=== PATIENT | female | born 1955 | race Caucasian/White ===

== ENCOUNTER 2017-10-21 15:04 | Inpatient (IN) | payer OTHER ==
[~2017-10-21] VITALS: Ht 167.6 cm; Wt 80.9 kg
[~2017-10-21 15:04] MED LIST: AZEL1SPR2 EACH NARE; GLIM1TAB PO; LEVO.1 PO; LISI2.5T3 PO; LORA0.5T PO; MEDR4PAK PO; SYMB160A INH; TERB5 PO; VENTAER INH
[2017-10-21 17:21] VITALS: BP 146/80; PULSE 94; RESP 20; TEMP 98.1; O2SAT 95
[2017-10-21] MEDS ORDERED: LISI-515 PO (19:29)
[2017-10-21] MEDS ORDERED: PRED1SUS RIGHT EYE (19:29)
--- NOTE | 2017-10-21 19:31 | HHI.HP ---
HPI Service [facility] Hospitalists Primary Care Physician Non-Staff Admission Diagnosis Chief Complaint: sob Travel History International Travel<30 Days: No Contact w/Intl Traveler <30 Da: No Traveled to Known Affected Are: No History of Present Illness Pt is 62yo woman with hx parotid ca s/p resection, 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 Pt says she was unable to finish the last 2 chemo cycles due to side effects. Since finishing her chemo she has had some degree of chronic sob and is unclear about her hx of copd. She denies any recent wheezing or increase in cough. since this morning has had alot of band like pressure around her upper abdomen causing nausea, sob, dizziness especially with ambulation. She also grabs her left ant chest during my conversation and describes pressure. no jaw or arm radiation. No known hx of cad but has hx of LBBB. Pt had cta chest in [place] and sent here for eval for cardiac dz. Pt notes a "pinching sensation" under the left breast and even some palpitations with exertion. Review of Systems Other nausea sob/dizzy with exertion left chest pressure upper abdomen band like sensation. 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 with chemoradiation [place]. ...right facial droop due to nerve removal. htn dm 2 copd/asthma. migraines hypothyroidism lap yu. bilateral oophorectomy. cysts. thyroidectomy. benign nodules. recent right "iritis" LBBB Reported Medications Symbicort Inh (Budesonide/Formoterol Fumarate) 160-4.5 Mcg/Act Aero 2 Puff INH Q12HR Pred Forte Opth 1% (Prednisolone Acetate Opth 1%) 1% Susp 1 Drop RIGHT EYE HS Lisinopril 20 Mg Tab 20 Mg PO DAILY Synthroid (Levothyroxine Sodium) 100 Mcg Tab 100 Mcg PO DAILY Glimepiride 1 Mg Tab 2 Mg PO DAILY Take with breakfast or first main meal Prn sumatriptan Prn ativan 1mg qhs Allergies: Coded Allergies: Sulfa (Sulfonamide Antibiotics) (Unverified Allergy, Severe, Anaphylaxis, 10/21/17) penicillin G (Unverified Allergy, Severe, HIVES, 10/21/17) Family History NC Social History 2-3ppd tob x 38yrs. quit 10yrs ago occ etoh. Physical Exam Vital Signs right facial droop heart reg lung cta abd s/nt/nabs. nd ext no edema Vital Signs Date Time Temp Pulse Resp B/P (MAP) Pulse Ox O2 Delivery O2 Flow Rate FiO2 10/21/17 17:21 98.1 94 20 146/80 (102) 95 Caprinporsha VTE Risk Assessment Hipolito VTE Risk Assessment: Mod/High Risk (score >= 2) Caprini Risk Assessment Model Point Value = 1 Point Value = 2 Point Value = 3 Point Value = 5 Age 41-60 Minor surgery BMI > 25 kg/m2 Swollen legs Varicose veins or History of unexplained or recurrent spontaneous Oral contraceptives or hormone replacement Sepsis (< 1 month) Serious lung disease, including pneumonia (< 1 month) Abnormal pulmonary function Acute myocardial infarction Congestive heart failure (< 1 month) History of inflammatory bowel disease Medical patient at bed rest Age 61-74 Arthroscopic surgery Major open surgery (> 45 min) Laparoscopic surgery (> 45 min) Malignancy Confined to bed (> 72 hours) Immobilizing plaster cast Central venous access Age >= 75 History of VTE Family history of VTE Factor V Leiden Prothrombin [id number] Lupus anticoagulant Anticardiolipin antibodies Elevated serum homocysteine Heparin-induced thrombocytopenia Other congenital or acquired thrombophilia Stroke (< 1 month) Elective arthroplasty Hip, pelvis, or leg fracture Acute spinal cord injury (< 1 month) Prophylaxis Regimen Total Risk Factor Score Risk Level Prophylaxis Regimen 0-1 Low Early ambulation 2 Moderate Order ONE of the following: *Sequential Compression Device (SCD) *Heparin 5000 units SQ BID 3-4 Higher Order ONE of the following medications: *Heparin 5000 units SQ TID *Enoxaparin/Lovenox 40 mg SQ daily (WT < 150 kg, CrCl > 30 mL/min) *Enoxaparin/Lovenox 30 mg SQ daily (WT < 150 kg, CrCl > 10-29 mL/min) *Enoxaparin/Lovenox 30 mg SQ BID (WT < 150 kg, CrCl > 30 mL/min) AND/OR *Sequential Compression Device (SCD) 5 or more Highest Order ONE of the following medications: *Heparin 5000 units SQ TID (Preferred with Epidurals) *Enoxaparin/Lovenox 40 mg SQ daily (WT < 150 kg, CrCl > 30 mL/min) *Enoxaparin/Lovenox 30 mg SQ daily (WT < 150 kg, CrCl > 10-29 mL/min) *Enoxaparin/Lovenox 30 mg SQ BID (WT < 150 kg, CrCl > 30 mL/min) AND *Sequential Compression Device (SCD) Assessment and Plan Problem List: (1) SOB (shortness of breath) ICD Codes: R06.02 - Shortness of breath Status: Acute Plan: 1. sob. upper abdomen "band like sensation" and left chest pressure. c/o severe abernathy and dizziness. evaluate for cad in pt with risk factors. 2. dm 2 3. copd/asthma 4. hypothyroidism 5. hx right parotid ca s/p resection/chemoradiation 6. htn 7. recent dx of "right iritis now on prednisolone" echo/lexiscan to eval LVF and for ischemia telemetry to evaluate for arrhythmia. ambulate and check for hypoxia will obtain outpt pft from cp to assess degree of copd for now cont her symbicort. AM flp/hgba1c. dvt prophylaxis. (2) HTN (hypertension) ICD Codes: I10 - Essential (primary) hypertension Status: Chronic (3) DM type 2 (diabetes mellitus, type 2) ICD Codes: E11.9 - Type 2 diabetes mellitus without complications Status: Chronic (4) Hypothyroid ICD Codes: E03.9 - Hypothyroidism, unspecified Status: Chronic (5) Carcinoma of parotid gland ICD Codes: C07 - Malignant neoplasm of parotid gland Status: Resolved Darryl Kam MD Oct 21, 2017 19:31
[2017-10-21] MEDS ORDERED: SYMB160A INH (19:35)
[2017-10-21 19:39] VITALS: BP 156/85; PULSE 105; RESP 18; TEMP 98.5; O2SAT 94
[2017-10-21] MEDS ORDERED: LORazepam 1 MG TAB PO PRN (19:45)
[2017-10-21] MEDS ORDERED: DEXTROSE 50% IN WATER 50 ML VIAL(D50) IV PUSH PRN (19:45)
[2017-10-21] MEDS ORDERED: GLUCAGON 1 MG/ML VIAL OTHER PRN (19:45)
[2017-10-21] MEDS ORDERED: cloNIDine HCL 0.1 MG TAB PO PRN (20:00)
[2017-10-21] MEDS: INSULIN ASPART SUPPLEMENTAL SCALE SQ SCH (20:54)
[2017-10-21] MEDS: prednisoLONE ACETATE 1% OPHT SUSP 5 ML BTL RIGHT EYE SCH (20:54)
[2017-10-21] MEDS: BUDESONIDE-FORMOTEROL 160/4.5 MCG INHALER INH SCH (20:55)
[2017-10-21 22:55] VITALS: BP 121/69; PULSE 89; RESP 18; TEMP 97.9; O2SAT 95
[2017-10-21 23:00] VITALS: PULSE 85
[2017-10-22] VITALS (9 sets, daily range): BP systolic 105–132; BP diastolic 57–85; PULSE 72–104; RESP 16–24; TEMP 97.8–98.2; O2SAT 94–96
[2017-10-22] MEDS: LEVOTHYROXINE SODIUM 100 MCG TAB PO SCH (05:25)
[2017-10-22 06:41] LABS: AUTOMATED NEUTROPHIL # 3.9 TH/MM3 (1.8-7.7); BASOPHIL % 0.4 % (0.0-2.0); EOSINOPHIL # 0.2 TH/MM3 (0-0.4); EOSINOPHIL % 2.7 % (0.0-4.0); HEMATOCRIT 38.9 % (35.0-46.0); HEMOGLOBIN 13.2 GM/DL (11.6-15.3); LYMPH % 18.7 % (9.0-44.0); LYMPHOCYTE # 1.1 TH/MM3 (1.0-4.8); MEAN CELL VOLUME 87.3 FL (80.0-100.0); MEAN CORPUSCULAR HEMOGLOBIN 29.7 PG (27.0-34.0); MEAN PLATELET VOLUME 8.4 FL (7.0-11.0); MONO % 8.8 % (0.0-8.0); MONOCYTE # 0.5 TH/MM3 (0-0.9); NEUT % 69.4 % (16.0-70.0); PLATELET COUNT 196 TH/MM3 (150-450); RED BLOOD COUNT 4.46 MIL/MM3 (4.00-5.30); RED CELL DISTRIBUTION WIDTH 13.1 % (11.6-17.2); WHITE BLOOD COUNT 5.6 TH/MM3 (4.0-11.0)
[2017-10-22 07:03] LABS: BICARBONATE 24.9 MEQ/L (21.0-32.0); BLOOD UREA NITROGEN 19 MG/DL (7-18); CALCIUM 8.4 MG/DL (8.5-10.1); CHLORIDE 106 MEQ/L (98-107); CHOLESTEROL 177 MG/DL (120-200); CREATININE 0.92 MG/DL (0.50-1.00); GLOMERULAR FILTRATION RATE 62 ML/MIN (>89); GLUCOSE,RANDOM 165 MG/DL (74-106); SODIUM (NA) 141 MEQ/L (136-145); TRIGLYCERIDES 93 MG/DL (42-150)
[2017-10-22 07:08] LABS: CHOLESTEROL/ HDL RATIO 3.39 RATIO; HDL CHOLESTEROL 52.2 MG/DL (40.0-60.0); LDL CHOLESTEROL 106 MG/DL (0-99); TROPONIN I LESS THAN 0.02 NG/ML (0.02-0.05)
[2017-10-22] MEDS: INSULIN ASPART SUPPLEMENTAL SCALE SQ SCH ×4 (08:47→21:00)
--- NOTE | 2017-10-22 09:18 | HHI.PR ---
Subjective Remarks Patient resting in bed denies chest pain, SOB or dizziness at this time while laying down Patient concerned that symptoms will return when she ambulates Objective Vitals Vital Signs Date Time Temp Pulse Resp B/P (MAP) Pulse Ox O2 Delivery O2 Flow Rate FiO2 10/22/17 07:33 97.8 85 16 132/74 (93) 95 10/22/17 07:10 74 10/22/17 04:19 97.8 83 18 131/67 (88) 94 10/21/17 23:00 85 10/21/17 22:55 97.9 89 18 121/69 (86) 95 10/21/17 19:39 98.5 105 18 156/85 (108) 94 10/21/17 17:21 98.1 94 20 146/80 (102) 95 Result Diagram: 10/22/17 0602 10/22/17 0602 Other Results Laboratory Tests Test 10/22/17 06:02 White Blood Count 5.6 TH/MM3 Red Blood Count 4.46 MIL/MM3 Hemoglobin 13.2 GM/DL Hematocrit 38.9 % Mean Corpuscular Volume 87.3 FL Mean Corpuscular Hemoglobin 29.7 PG Mean Corpuscular Hemoglobin Concent 34.0 % Red Cell Distribution Width 13.1 % Platelet Count 196 TH/MM3 Mean Platelet Volume 8.4 FL Neutrophils (%) (Auto) 69.4 % Lymphocytes (%) (Auto) 18.7 % Monocytes (%) (Auto) 8.8 % Eosinophils (%) (Auto) 2.7 % Basophils (%) (Auto) 0.4 % Neutrophils # (Auto) 3.9 TH/MM3 Lymphocytes # (Auto) 1.1 TH/MM3 Monocytes # (Auto) 0.5 TH/MM3 Eosinophils # (Auto) 0.2 TH/MM3 Basophils # (Auto) 0.0 TH/MM3 CBC Comment DIFF FINAL Differential Comment Blood Urea Nitrogen 19 MG/DL Creatinine 0.92 MG/DL Random Glucose 165 MG/DL Calcium Level 8.4 MG/DL Sodium Level 141 MEQ/L Potassium Level 3.9 MEQ/L Chloride Level 106 MEQ/L Carbon Dioxide Level 24.9 MEQ/L Anion Gap 10 MEQ/L Estimat Glomerular Filtration Rate 62 ML/MIN Total Creatine Kinase 38 U/L Troponin I LESS THAN 0.02 NG/ML Triglycerides Level 93 MG/DL Cholesterol Level 177 MG/DL LDL Cholesterol 106 MG/DL HDL Cholesterol 52.2 MG/DL Cholesterol/HDL Ratio 3.39 RATIO Objective Remarks GENERAL: This is a well-nourished, well-developed patient, in no apparent distress. CARDIOVASCULAR: Regular rate and rhythm RESPIRATORY: Clear to auscultation. Breath sounds equal bilaterally. GASTROINTESTINAL: Abdomen soft, non-tender, nondistended. Normal active bowel sounds MUSCULOSKELETAL: Extremities without clubbing, cyanosis, or edema. NEURO: Alert & Oriented x4 to person, place, time, situation. Moves all ext x4 A/P Problem List: (1) SOB (shortness of breath) ICD Codes: R06.02 - Shortness of breath Status: Acute Plan: 1. sob. upper abdomen "band like sensation" and left chest pressure. c/o severe abernathy and dizziness. evaluate for cad in pt with risk factors. 2. dm 2 3. copd/asthma 4. hypothyroidism 5. hx right parotid ca s/p resection/chemoradiation 6. htn 7. recent dx of "right iritis now on prednisolone" Patient NPO for lexiscan echo (pending) Lexiscan No evidence of stress-induced ischemia. Intact wall motion with greater than 70% EF. telemetry to evaluate for arrhythmia. ambulate and check for hypoxia CXR (10/21/17) conclusion: the lungs are clear CT Pulmonary angiogram 10/21/17 conclusion: Mild COPD changes. No Pulmonary embolus identified. Stable compared to previous exam dated 06/17/17 US left leg impression: Negative deep venous ultrasound examination of the left lower leg Outpt PFT from [facility] (09/26/17) revealed FEV1 58% cont her symbicort. Awaiting resp walk test LDL 106 hgba1c. (pending) dvt prophylaxis. (2) HTN (hypertension) ICD Codes: I10 - Essential (primary) hypertension Status: Chronic (3) DM type 2 (diabetes mellitus, type 2) ICD Codes: E11.9 - Type 2 diabetes mellitus without complications Status: Chronic (4) Hypothyroid ICD Codes: E03.9 - Hypothyroidism, unspecified Status: Chronic (5) Carcinoma of parotid gland ICD Codes: C07 - Malignant neoplasm of parotid gland Status: Resolved Assessment and Plan Patient examined. Assessment and plan formulated with Claribel León PA-C. I agree with the above. gissell negative. echo pending. passed walk test. ct a/p concerning for ?mass cecum..GI consult Claribel León October 22, 2017 09:18 Darryl Kam MD October 22, 2017 18:38
[2017-10-22] MEDS ORDERED: REGADENOSON INJ 0.4 MG/5 ML SYR ONE (09:44)
[2017-10-22] MEDS: LISINOPRIL 20 MG TAB PO SCH (11:29)
[2017-10-22] MEDS: BUDESONIDE-FORMOTEROL 160/4.5 MCG INHALER INH SCH ×2 (11:29→22:09)
[2017-10-22] MEDS: ONDANSETRON HCL 4 MG/2 ML VIAL IV PUSH PRN (11:33)
--- NOTE | 2017-10-22 11:34 | RADRPT ---
EXAM DATE/TIME: 10/22/2017 09:29 [facility] COMPARISON: No previous studies available for comparison. INDICATIONS : Left sided chest pain. Angina. Left bundle branch block. DOSE: 25.9 mCi Tc99m Myoview at stress. 8.3 mCi Tc99m Myoview at rest. 0.4 mg Lexiscan STRESS SYMPTOMS: Stomach cramps. EJECTION FRACTION: > 70% MEDICAL HISTORY : Chronic obstructive pulmonary disease. Parotiod cancer. SURGICAL HISTORY : Cholecystectomy. Thyroidectomy. ENCOUNTER: Initial ACUITY: 1 day PAIN SCALE: 2/10 LOCATION: Left chest TECHNIQUE: The patient underwent pharmacologic stress with infusion of prescribed dose. Continuous ECG tracing was monitored during stress. Gated SPECT imaging was performed after stress and conventional SPECT i maging was performed at rest. The examination was performed on a SPECT/CT scanner, both attenuation and non-corrected datasets were reviewed. FINDINGS: DISTRIBUTION: The maximum perfused segment at stress is in the lateral wall. PERFUSION STUDY: The pattern of perfusion at stress is within normal limits with regional variations of perfusion with in 30%. The summed stress score is 3. GATED STUDY: There is intact wall motion and thickening without hypokinetic or dyskinetic segments. CONCLUSION: 1. No evidence of stress-induced ischemia. 2. Intact wall motion with greater than 70% ejection fraction. RISK CATEGORY: Low (<1% Annual Mortality Rate) Polo Aparicio MD on October 22, 2017 at 11:31 Board Certified Radiologist. This report was verified electronically.
[2017-10-22] MEDS ORDERED: DIATRIZOATE MEGLUM/DIATRIZOATE SOD 9 ML CUP PO ONE (15:00)
--- NOTE | 2017-10-22 17:45 | RADRPT ---
EXAM DATE/TIME: 10/22/2017 17:24 [facility] COMPARISON: No previous studies available for comparison. INDICATIONS : Abdomen pain,upper quadrant ORAL CONTRAST: Partial prescribed oral contrast ingested. RADIATION DOSE: 10.81 CTDIvol (mGy) MEDICAL HISTORY : Cardiovascular disease. Hypertension. Diabetes SURGICAL HISTORY : Cholecystectomy. ENCOUNTER: Initial ACUITY: 1 day PAIN SCALE: 6/10 LOCATION: Bilateral Abdomen TECHNIQUE: Volumetric scanning of the abdomen and pelvis was performed. Using automated exposure control and ad justment of the mA and/or kV according to patient size, radiation dose was kept as low as reasonably achievable to obtain optimal diagnostic quality images. DICOM format image data is available electro nically for review and comparison. FINDINGS: LOWER LUNGS: The visualized lower lungs are clear. LIVER: Homogeneous density without lesion for noncontrast technique. There is no dilation of the biliary tr ee. Cholecystectomy. SPLEEN: Normal size without lesion. PANCREAS: Within normal limits. KIDNEYS: Normal in size and shape. There is no mass, stone, or hydronephrosis. 1.3 cm cyst posterior upper r ight kidney. ADRENAL GLANDS: Within normal limits. VASCULAR: There is no aortic aneurysm. BOWEL/MESENTERY: No dilated loops of small or large bowel. Oral contrast passes through to the right colon. In the c ecum, there is no contrast and there is an oval opacity measuring 4.4 x 2.3 cm within the lumen. Thi s is of uncertain significance. There are few diverticula in the sigmoid colon without radiographic evidence of diverticulitis. ABDOMINAL WALL: Within normal limits. RETROPERITONEUM: There is no lymphadenopathy. BLADDER: No wall thickening or mass. REPRODUCTIVE: Within normal limits. INGUINAL: Small left-sided fat containing inguinal hernia. MUSCULOSKELETAL: Within normal limits for patient age. CONCLUSION: 1. Oral contrast passes through to the right colon, but there is an area without contrast in the guzman on of the cecum suggesting possible intraluminal mass. May consider direct visualization with colono scopy. 2. Small fat containing left inguinal hernia. Ploo Aparicio MD on October 22, 2017 at 17:39 Board Certified Radiologist. This report was verified electronically.
[2017-10-22 18:29] LABS: HEMOGLOBIN A1C 7.6 % (4.3-6.0)
[2017-10-22] MEDS: prednisoLONE ACETATE 1% OPHT SUSP 5 ML BTL RIGHT EYE SCH (22:09)
[2017-10-23] VITALS (7 sets, daily range): BP systolic 117–146; BP diastolic 60–77; PULSE 70–122; RESP 16–18; TEMP 97.5–98.5; O2SAT 94–96
[2017-10-23] MEDS: LEVOTHYROXINE SODIUM 100 MCG TAB PO SCH (05:17)
[2017-10-23] MEDS: LISINOPRIL 20 MG TAB PO SCH (08:44)
[2017-10-23] MEDS: BUDESONIDE-FORMOTEROL 160/4.5 MCG INHALER INH SCH ×2 (08:44→21:34)
[2017-10-23] MEDS: INSULIN ASPART SUPPLEMENTAL SCALE SQ SCH ×4 (08:47→21:37)
--- NOTE | 2017-10-23 10:00 | HHI.PR ---
Subjective Remarks Pt reports that she is still having upper abdominal discomfort which is worse after she eats She reports that she has had this pain for several months She has a fullness sensation on the right side that makes her feel like she can' t take a deep breath She has been ambulating without difficulty No further chest pain Her O2 sats were stable with ambulation. Objective Vitals Vital Signs Date Time Temp Pulse Resp B/P (MAP) Pulse Ox O2 Delivery O2 Flow Rate FiO2 10/23/17 07:25 98.0 81 18 146/70 (95) 94 10/23/17 07:10 70 10/23/17 05:05 21 10/23/17 00:39 98.5 83 18 118/60 (79) 95 10/22/17 23:00 72 10/22/17 20:52 97.8 94 18 105/57 (73) 95 10/22/17 16:18 96 10/22/17 15:57 98.2 104 20 129/85 (100) 96 10/22/17 12:30 75 10/22/17 11:07 98.0 97 24 131/74 (93) 96 Result Diagram: 10/22/17 0602 10/22/17 0602 Other Results Laboratory Tests Test 10/22/17 06:02 White Blood Count 5.6 TH/MM3 Red Blood Count 4.46 MIL/MM3 Hemoglobin 13.2 GM/DL Hematocrit 38.9 % Mean Corpuscular Volume 87.3 FL Mean Corpuscular Hemoglobin 29.7 PG Mean Corpuscular Hemoglobin Concent 34.0 % Red Cell Distribution Width 13.1 % Platelet Count 196 TH/MM3 Mean Platelet Volume 8.4 FL Neutrophils (%) (Auto) 69.4 % Lymphocytes (%) (Auto) 18.7 % Monocytes (%) (Auto) 8.8 % Eosinophils (%) (Auto) 2.7 % Basophils (%) (Auto) 0.4 % Neutrophils # (Auto) 3.9 TH/MM3 Lymphocytes # (Auto) 1.1 TH/MM3 Monocytes # (Auto) 0.5 TH/MM3 Eosinophils # (Auto) 0.2 TH/MM3 Basophils # (Auto) 0.0 TH/MM3 CBC Comment DIFF FINAL Differential Comment Blood Urea Nitrogen 19 MG/DL Creatinine 0.92 MG/DL Random Glucose 165 MG/DL Calcium Level 8.4 MG/DL Sodium Level 141 MEQ/L Potassium Level 3.9 MEQ/L Chloride Level 106 MEQ/L Carbon Dioxide Level 24.9 MEQ/L Anion Gap 10 MEQ/L Estimat Glomerular Filtration Rate 62 ML/MIN Hemoglobin A1c 7.6 % Total Creatine Kinase 38 U/L Troponin I LESS THAN 0.02 NG/ML Triglycerides Level 93 MG/DL Cholesterol Level 177 MG/DL LDL Cholesterol 106 MG/DL HDL Cholesterol 52.2 MG/DL Cholesterol/HDL Ratio 3.39 RATIO Imaging Last Impressions Myocardial Perfusion Scan Nuc Med 10/22/17 0600 Signed Impressions: Service Date/Time: Sunday, October 22, 2017 09:29 - CONCLUSION: 1. No evidence of stress-induced ischemia. 2. Intact wall motion with greater than 70%% ejection fraction. RISK CATEGORY: Low (<1%% Annual Mortality Rate) Polo Aparicio MD Abdomen/Pelvis CT 10/22/17 0000 Signed Impressions: Service Date/Time: Sunday, October 22, 2017 17:24 - CONCLUSION: 1. Oral contrast passes through to the right colon, but there is an area without contrast in the region of the cecum suggesting possible intraluminal mass. May consider direct visualization with colonoscopy. 2. Small fat containing left inguinal hernia. Polo Aparicio MD Objective Remarks GENERAL: NAD, AAOx3 CARDIOVASCULAR: Regular RESPIRATORY: CTA bilaterally. GASTROINTESTINAL: Abdomen soft, non-tender, nondistended. Normal active bowel sounds MUSCULOSKELETAL: Extremities without clubbing, cyanosis, or edema. A/P Problem List: (1) SOB (shortness of breath) ICD Codes: R06.02 - Shortness of breath Status: Acute Plan: SOB with upper abdomen "band like sensation" and left chest pressure. Severe ABREU and dizziness Possible cecal mass - Pt is a 62yo woman with hx parotid ca s/p resection/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 She reportedly was unable to finish the last 2 chemo cycles due to side effects. Since finishing her chemo she has had some degree of chronic SOB and is unclear about her hx of copd. - On the morning of admission she had a lot of band like pressure around her upper abdomen causing nausea, SOB, dizziness especially with ambulation - CXR (10/21/17) conclusion: the lungs are clear - CT Pulmonary angiogram (10/21/17) --> Mild COPD changes. No Pulmonary embolus identified. Stable compared to previous exam dated 06/17/17 - Lexiscan (10/22)--> No evidence of stress-induced ischemia. Intact wall motion with greater than 70% EF. - Telemetry which noted tachycardia into the 130's periodically, she repeorts that this is with ambulation. - No noted hypoxia with ambulation - US left leg impression: Negative deep venous ultrasound examination of the left lower leg - 2D echo is pending - CT Abd/pelvis W/O IV contrast (10/22/17) --> Oral contrast passes through to the right colon, but there is an area without contrast in the region of the cecum suggesting possible intraluminal mass. May consider direct visualization with colonoscopy. Small fat containing left inguinal hernia. - GI has been consulted. Pt reports that her last colonoscopy was over 10 years ago and she had polyps and diverticulosis at that time. Diabetes mellitus, type 2 - Hgb A1C 7.6% - NovoLog SSI COPD/asthma - Outpt PFT from [facility] (09/26/17) revealed FEV1 58% - Cont her Symbicort. Hypothyroidism - Cont. home meds - Monitor HTN - Cont. 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 (2) HTN (hypertension) ICD Codes: I10 - Essential (primary) hypertension Status: Chronic (3) DM type 2 (diabetes mellitus, type 2) ICD Codes: E11.9 - Type 2 diabetes mellitus without complications Status: Chronic (4) Hypothyroid ICD Codes: E03.9 - Hypothyroidism, unspecified Status: Chronic (5) Carcinoma of parotid gland ICD Codes: C07 - Malignant neoplasm of parotid gland Status: Resolved Assessment and Plan Patient examined. Assessment and plan formulated with Claribel León PA-C. I agree with the above. gissell negative. echo pending. passed walk test. ct a/p concerning for ?mass cecum..GI consulted and egd/colon planned. Olga Elam October 23, 2017 10:00 Darryl Kam MD October 23, 2017 13:18
--- NOTE | 2017-10-23 10:55 | PD.CONS ---
HPI History of Present Illness This is a 62 year old female with hx parotic ca s/p resection, chemo radiation who presented to ER with SOB and upper abd pressure. Onset 3 days ago. SHe notes lingering SOB since completing chemo 15 months ago. GI consulted for abnormal imaging. CT showede possible intraluminal mass right colon. She admits nausea for the last 3 months worse after eating. She has been more constipated than usual in the last few months. No vomiting. No diarrhea, black tarry stool , weight loss. Admits occasional red blood on wipe, scant, when constipated after having BM. Last colonoscopy > 10y ago in [place], polyps and diverticulosis found. She had EGD at that time as well which was unremarkable. (Suma Foster) PFSH Past Medical History parotid ca s/p chemo, radiation, resection iatrogenic hypothyroid diabetes HTN Past Surgical History thyroid resection parotid resection (Suma Foster) Coded Allergies: Sulfa (Sulfonamide Antibiotics) (Unverified Allergy, Severe, Anaphylaxis, 10/21/17) penicillin G (Unverified Allergy, Severe, HIVES, 10/21/17) Family History thyroid ca - mother brca - mother denies family hx colon ca Social History rare etoh quit smoking 10y ago no illicit drug use (Suma Foster) Review of Systems Constitutional: DENIES: Fever, Weight loss Endocrine: DENIES: Polydipsia Eyes: DENIES: Blurred vision Ears, nose, mouth, throat: DENIES: Hearing loss Respiratory: COMPLAINS OF: Shortness of breath, DENIES: Cough Cardiovascular: DENIES: Chest pain Gastrointestinal: COMPLAINS OF: Abdominal pain, Constipation, Nausea, DENIES: Black stools, Bloody stools, Vomiting Genitourinary: DENIES: Nocturia Musculoskeletal: DENIES: Joint Swelling Integumentary: DENIES: Jaundice Hematologic/lymphatic: DENIES: Bruising Immunologic/allergic: DENIES: Eczema Neurologic: DENIES: Abnormal gait Psychiatric: DENIES: Confusion (Suma Foster) GI Exam Vitals I&O Vital Signs Date Time Temp Pulse Resp B/P (MAP) Pulse Ox O2 Delivery O2 Flow Rate FiO2 10/23/17 07:25 98.0 81 18 146/70 (95) 94 10/23/17 07:10 70 10/23/17 05:05 21 10/23/17 00:39 98.5 83 18 118/60 (79) 95 10/22/17 23:00 72 10/22/17 20:52 97.8 94 18 105/57 (73) 95 10/22/17 16:18 96 10/22/17 15:57 98.2 104 20 129/85 (100) 96 10/22/17 12:30 75 10/22/17 11:07 98.0 97 24 131/74 (93) 96 I/O 10/22/17 10/22/17 10/22/17 10/23/17 10/23/17 10/23/17 06:59 14:59 22:59 06:59 14:59 22:59 # Voids 3 # Bowel Movements 0 Imaging Last Impressions Myocardial Perfusion Scan Nuc Med 10/22/17 0600 Signed Impressions: Service Date/Time: Sunday, October 22, 2017 09:29 - CONCLUSION: 1. No evidence of stress-induced ischemia. 2. Intact wall motion with greater than 70%% ejection fraction. RISK CATEGORY: Low (<1%% Annual Mortality Rate) Polo Aparicio MD Abdomen/Pelvis CT 10/22/17 0000 Signed Impressions: Service Date/Time: Sunday, October 22, 2017 17:24 - CONCLUSION: 1. Oral contrast passes through to the right colon, but there is an area without contrast in the region of the cecum suggesting possible intraluminal mass. May consider direct visualization with colonoscopy. 2. Small fat containing left inguinal hernia. Polo Aparicio MD Laboratory Laboratory Tests Test 10/22/17 06:02 White Blood Count 5.6 TH/MM3 Red Blood Count 4.46 MIL/MM3 Hemoglobin 13.2 GM/DL Hematocrit 38.9 % Mean Corpuscular Volume 87.3 FL Mean Corpuscular Hemoglobin 29.7 PG Mean Corpuscular Hemoglobin Concent 34.0 % Red Cell Distribution Width 13.1 % Platelet Count 196 TH/MM3 Mean Platelet Volume 8.4 FL Neutrophils (%) (Auto) 69.4 % Lymphocytes (%) (Auto) 18.7 % Monocytes (%) (Auto) 8.8 % Eosinophils (%) (Auto) 2.7 % Basophils (%) (Auto) 0.4 % Neutrophils # (Auto) 3.9 TH/MM3 Lymphocytes # (Auto) 1.1 TH/MM3 Monocytes # (Auto) 0.5 TH/MM3 Eosinophils # (Auto) 0.2 TH/MM3 Basophils # (Auto) 0.0 TH/MM3 CBC Comment DIFF FINAL Differential Comment Blood Urea Nitrogen 19 MG/DL Creatinine 0.92 MG/DL Random Glucose 165 MG/DL Calcium Level 8.4 MG/DL Sodium Level 141 MEQ/L Potassium Level 3.9 MEQ/L Chloride Level 106 MEQ/L Carbon Dioxide Level 24.9 MEQ/L Anion Gap 10 MEQ/L Estimat Glomerular Filtration Rate 62 ML/MIN Hemoglobin A1c 7.6 % Total Creatine Kinase 38 U/L Troponin I LESS THAN 0.02 NG/ML Triglycerides Level 93 MG/DL Cholesterol Level 177 MG/DL LDL Cholesterol 106 MG/DL HDL Cholesterol 52.2 MG/DL Cholesterol/HDL Ratio 3.39 RATIO Physical Examination HEENT: PERRL; normocephalic; atraumatic; no jaundice. ptosis right side face CHEST: CTA CARDIAC: RRR ABDOMEN: Soft, nondistended, RUQ TTP; no hepatosplenomegaly; bowel sounds are present in all four quadrants. EXTREMITIES: No clubbing, cyanosis, or edema. SKIN: Normal; no rash; no jaundice. SHAKE SAWYER: No focal deficits; alert and oriented times three. (Suma Foster) Assessment and Plan Plan ASSESSMENT - RLQ pain, nausea, change in bowel habits, abnormal imaging - unclear etiology. 2-3 month hx RLQ pain, increased constipation, nausea after eating. CT showed poss intraluminal mass area of cecum. her last colonoscopy was over 10 y ago with finding diverticulosis, polyps. Had EGD at that time as well, unremarkable per pt. cardiac cause of pain ruled out. hx parotid ca. PLAN - EGD and colonoscopy tomorrow - obtain consent - Golytely - clears today - NPO after midnight - further recs to follow pt seen by myself and Dr Crockett and this note is on his behalf (Suma Foster) Plan Patient was seen and examined, agree with above note, we will plan an endoscopy and colonoscopy tomorrow, I explained to the patient the procedure and she is agreeable to have it done (Roxana Crockett MD) Suma Foster October 23, 2017 10:55 Roxana Crockett MD October 23, 2017 20:54
[2017-10-23] MEDS ORDERED: LACTATED RINGER'S 1000 ML IV PRN (15:15)
[2017-10-23] MEDS ORDERED: METOPROLOL TARTRATE 25 MG TAB PO PRN (15:15)
[2017-10-23] MEDS ORDERED: POVIDONE IODINE 5% (ANTISEPSIS KIT) 4 APPLICATIONS EACH NARE PRN (15:15)
[2017-10-23] MEDS ORDERED: SODIUM CHLORID 0.9% 500 ML IV PRN (15:15)
[2017-10-23] MEDS ORDERED: CHLORHEXIDINE GLUCONATE 2 % 1 PACK (2 CLOTHS) TOPICAL PRN (15:15)
[2017-10-23] MEDS ORDERED: PEG (High)/E-LYTE SOLN 4000 ML BTL PO ONE (16:00)
--- NOTE | 2017-10-23 16:52 | ECHRPT ---
Indication: SHORTNESS OF BREATH CONCLUSIONS Normal left ventricular size. EF @ 60% Mild concentric left ventricular hypertrophy. The left ventricular systolic function is grossly normal on limited imaging. There is trace tricuspid valve regurgitation. A prominent epicardial fat pad is present. BP: 132 / 74 HR: 85 Rhythm: Sinus MEASUREMENTS (Male / Female) Normal Values Technical Quality:Fair 2D ECHO LV Diastolic Diameter PLAX 4.2 cm 4.2 - 5.9 / 3.9 - 5.3 cm LV Systolic Diameter PLAX 2.6 cm IVS Diastolic Thickness 1.1 cm 0.6 - 1.0 / 0.6 - 0.9 cm LVPW Diastolic Thickness 1.1 cm 0.6 - 1.0 / 0.6 - 0.9 cm LV Relative Wall Thickness 0.5 RV Internal Dim ED PLAX 2.2 cm LVOT Diameter 1.8 cm Aortic Root Diameter 2.7 cm LA Systolic Diameter LX 2.2 cm 3.0 - 4.0 / 2.7 - 3.8 cm M-MODE AV Cusp Separation MM 1.9 cm DOPPLER AV Peak Velocity 139.0 cm/s AV Peak Gradient 7.7 mmHg AV Mean Gradient 4.0 mmHg AV Velocity Time Integral 21.0 cm LVOT Peak Velocity 134.0 cm/s LVOT Peak Gradient 7.2 mmHg LVOT Velocity Time Integral 21.0 cm AV Area Cont Eq vti 2.5 cm AV Area Cont Eq pk 2.5 cm Mitral E Point Velocity 51.3 cm/s Mitral A Point Velocity 88.4 cm/s Mitral E to A Ratio 0.6 LV E' Lateral Velocity 10.5 cm/s Mitral E to LV E' Lateral Ratio 4.9 LV E' Septal Velocity 5.4 cm/s Mitral E to LV E' Septal Ratio 9.6 PV Peak Velocity 117.0 cm/s PV Peak Gradient 5.5 mmHg FINDINGS LEFT VENTRICLE Normal left ventricular size. Mild concentric left ventricular hypertrophy. The left ventricular systolic function is grossly normal on limited imaging. RIGHT VENTRICLE Normal right ventricular size and systolic function. LEFT ATRIUM The left atrial size is normal. RIGHT ATRIUM The right atrial size is normal. ATRIAL SEPTUM The interatrial septum not well visualized. AORTA The aortic root and proximal ascending aorta are not well visualized. MITRAL VALVE Structurally normal mitral valve. No mitral valve stenosis or regurgitation. AORTIC VALVE The aortic valve is not well visualized. TRICUSPID VALVE There is trace tricuspid valve regurgitation. PULMONARY VALVE The pulmonary valve is not well visualized. VESSELS The inferior vena cava is normal in size. PERICARDIUM A prominent epicardial fat pad is present. Duncan Pacheco MD, FACC, [facility] [place] (Electronically Signed) Final Date:23 Oct 2017 16:52
[2017-10-23] MEDS: prednisoLONE ACETATE 1% OPHT SUSP 5 ML BTL RIGHT EYE SCH (21:00)
[2017-10-23] MEDS: ONDANSETRON HCL 4 MG/2 ML VIAL IV PUSH PRN (22:39)
[2017-10-24 00:42] VITALS: PULSE 90
[2017-10-24 01:15] VITALS: BP 143/65; PULSE 85; RESP 16; TEMP 98; O2SAT 98
[2017-10-24] MEDS: LEVOTHYROXINE SODIUM 100 MCG TAB PO SCH (05:29)
[2017-10-24 05:30] VITALS: BP 144/67; PULSE 86; RESP 16; TEMP 97.6; O2SAT 96
[2017-10-24 07:49] VITALS: PULSE 101
[2017-10-24] MEDS: INSULIN ASPART SUPPLEMENTAL SCALE SQ SCH ×4 (08:00→21:58)
--- NOTE | 2017-10-24 09:58 | PD.PROCEDR ---
GI Procedure PROCEDURE PERFORMED Upper endoscopy with biopsy, colonoscopy with polypectomy INDICATION FOR PROCEDURE Abdominal pain, abnormal CT scan of the cecum PROCEDURE: The procedure, risks and benefits were discussed with Ms. Salazar and informed consent was obtained. Anesthesia sedated her with Diprivan. She was placed in the left lateral decubitus position. EGD: The Pentax videoscope was introduced through the oropharynx and advanced to the second portion of the duodenum under direct visualization. Retroflexion was performed in the stomach. Biopsy from the EG junction Colonoscopy: The Pentax videoscope was introduced through the rectum and advanced to cecum, terminal ileum was examined. Retroflexion was performed in the rectum. Colonic prep was fair ESTIMATED BLOOD LOSS: None SPECIMENS REMOVED: None COMPLICATIONS: None IMPRESSION: Irregular Z line, possible short Evans, biopsy was done from the esophagus and the distal part Stomach Duodenum normal Small hiatal hernia Terminal ileum is normal Cecum was examined carefully no masses was seen Diverticular disease in the left colon Small polyp in the rectum removed completely Small internal hemorrhoid PLAN: May feed patient Follow-up biopsy Colonoscopy in 5 years We will sign off Roxana Crockett MD October 24, 2017 09:58
--- NOTE | 2017-10-24 09:59 | HHI.GIFU ---
Subjective Remarks Patient is lying in bed comfortably, no significant problem Objective Vitals I&O Vital Signs Date Time Temp Pulse Resp B/P (MAP) Pulse Ox O2 Delivery O2 Flow Rate FiO2 10/24/17 07:49 101 10/24/17 05:30 97.6 86 16 144/67 (92) 96 10/24/17 01:15 98.0 85 16 143/65 (91) 98 10/24/17 00:42 90 10/23/17 22:26 97.5 122 16 117/77 (90) 96 10/23/17 19:40 117 10/23/17 15:55 89 10/23/17 15:54 98.4 77 18 131/64 (86) 96 I/O 10/23/17 10/23/17 10/23/17 10/24/17 10/24/17 10/24/17 07:00 15:00 23:00 07:00 15:00 23:00 # Bowel Movements 4 Physical Exam HEENT: Pupils round and reactive to light; normocephalic; atraumatic; no jaundice. Throat is clear. Lip numbness from previous surgery NECK: Neck is supple, no JVD, no lymphadenopathy. CHEST: Chest is clear to auscultation and percussion. CARDIAC: Regular rate and rhythm with no murmur gallop or rubs. ABDOMEN: Soft, nondistended, nontender; no hepatosplenomegaly; bowel sounds are present in all four quadrants. EXTREMITIES: No clubbing, cyanosis, or edema. SKIN: Normal; no rash; no jaundice. CLINICAL DOCUMENTATION SPEC: No focal deficits; alert and oriented times three. Assessment and Plan Plan Patient was seen and examined, no significant abdominal pain today, upper endoscopy and colonoscopy done IMPRESSION: Irregular Z line, possible short Evans, biopsy was done from the esophagus and the distal part Stomach Duodenum normal Small hiatal hernia Terminal ileum is normal Cecum was examined carefully no masses was seen Diverticular disease in the left colon Small polyp in the rectum removed completely Small internal hemorrhoid PLAN: May feed patient Follow-up biopsy Colonoscopy in 5 years We will sign off Protonix 40 mg daily Roxana Crockett MD October 24, 2017 09:59
[2017-10-24] MEDS: BUDESONIDE-FORMOTEROL 160/4.5 MCG INHALER INH SCH ×2 (10:48→21:57)
[2017-10-24] MEDS: LISINOPRIL 20 MG TAB PO SCH (10:49)
--- NOTE | 2017-10-24 11:31 | HHI.PR ---
Subjective Remarks Pt just returned from EGD/colonoscopy which noted irregular Z line, possible short Evans, small hiatal hernia, normal terminal ileum, normal cecum was examined carefully no masses were seen, diverticular disease in the left colon, small polyp in the rectum which was removed completely, and small internal hemorrhoid Pt reports that she is still getting some palpitations and tachycardia when she stands up and tries to ambulate and occasional dizziness. The dizziness is more vertiginous and reports that she has had this before after her chemo and XRT last year She is still having upper abdominal fullness and discomfort Objective Vitals Vital Signs Date Time Temp Pulse Resp B/P (MAP) Pulse Ox O2 Delivery O2 Flow Rate FiO2 10/24/17 10:05 97.0 76 18 140/76 (97) 98 10/24/17 07:49 101 10/24/17 05:30 97.6 86 16 144/67 (92) 96 10/24/17 01:15 98.0 85 16 143/65 (91) 98 10/24/17 00:42 90 10/23/17 22:26 97.5 122 16 117/77 (90) 96 10/23/17 19:40 117 10/23/17 15:55 89 10/23/17 15:54 98.4 77 18 131/64 (86) 96 Result Diagram: 10/22/17 0602 10/22/17 0602 Imaging Last Impressions Myocardial Perfusion Scan Nuc Med 10/22/17 0600 Signed Impressions: Service Date/Time: Sunday, October 22, 2017 09:29 - CONCLUSION: 1. No evidence of stress-induced ischemia. 2. Intact wall motion with greater than 70%% ejection fraction. RISK CATEGORY: Low (<1%% Annual Mortality Rate) Polo Aparicio MD Abdomen/Pelvis CT 10/22/17 0000 Signed Impressions: Service Date/Time: Sunday, October 22, 2017 17:24 - CONCLUSION: 1. Oral contrast passes through to the right colon, but there is an area without contrast in the region of the cecum suggesting possible intraluminal mass. May consider direct visualization with colonoscopy. 2. Small fat containing left inguinal hernia. Polo Aparicio MD Objective Remarks GENERAL: NAD, AAOx3 CARDIOVASCULAR: Regular RESPIRATORY: CTA bilaterally. GASTROINTESTINAL: Abdomen soft, non-tender, nondistended. Normal active bowel sounds MUSCULOSKELETAL: Extremities without clubbing, cyanosis, or edema. A/P Problem List: (1) SOB (shortness of breath) ICD Codes: R06.02 - Shortness of breath Status: Acute Plan: SOB with upper abdomen "band like sensation" and left chest pressure. Severe ABREU and dizziness Possible cecal mass - Pt is a 62yo woman with hx parotid ca s/p resection/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 She reportedly was unable to finish the last 2 chemo cycles due to side effects. Since finishing her chemo she has had some degree of chronic SOB and is unclear about her hx of copd. - On the morning of admission she had a lot of band like pressure around her upper abdomen causing nausea, SOB, dizziness especially with ambulation - CXR (10/21/17) conclusion: the lungs are clear - CT Pulmonary angiogram (10/21/17) --> Mild COPD changes. No Pulmonary embolus identified. Stable compared to previous exam dated 06/17/17 - Lexiscan (10/22)--> No evidence of stress-induced ischemia. Intact wall motion with greater than 70% EF. - Telemetry which noted tachycardia into the 130's periodically, she repeorts that this is with ambulation. - No noted hypoxia with ambulation - US left leg impression: Negative deep venous ultrasound examination of the left lower leg - 2D echo is pending - CT Abd/pelvis W/O IV contrast (10/22/17) --> Oral contrast passes through to the right colon, but there is an area without contrast in the region of the cecum suggesting possible intraluminal mass. May consider direct visualization with colonoscopy. Small fat containing left inguinal hernia. - G was consulted - EGD/colonoscopy (10/24/17) -->irregular Z line, possible short Evans, small hiatal hernia, normal terminal ileum, normal cecum was examined carefully no masses were seen, diverticular disease in the left colon, small polyp in the rectum which was removed completely, and small internal hemorrhoid - Start Protonix 40mg po BID - Simethicone 125mg Q8H Palpitations Dizziness HTN - Review of telemetry today with periods of tachyarrhtymia, possible A. flutter with HR into the 130-140s. This seems to correlate with ambulation - Holter monitor - Decrease Lisinopril to 10mg po daily - Add on Metoprolol 25mg po BID - Monitor Diabetes mellitus, type 2 - Hgb A1C 7.6% - NovoLog SSI COPD/asthma - Outpt PFT from [facility] (09/26/17) revealed FEV1 58% - Cont her Symbicort. HTN - Cont. 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 (2) HTN (hypertension) ICD Codes: I10 - Essential (primary) hypertension Status: Chronic (3) DM type 2 (diabetes mellitus, type 2) ICD Codes: E11.9 - Type 2 diabetes mellitus without complications Status: Chronic (4) Hypothyroid ICD Codes: E03.9 - Hypothyroidism, unspecified Status: Chronic (5) Carcinoma of parotid gland ICD Codes: C07 - Malignant neoplasm of parotid gland Status: Resolved Assessment and Plan Patient examined. Assessment and plan formulated with Claribel León PA-C. I agree with the above. gissell negative. echo pending. passed walk test. ct a/p concerning for ?mass cecum..GI consulted and egd/colon planned. Olga Elam October 24, 2017 11:31
[2017-10-24] MEDS ORDERED: PROPOFOL 200 MG/20 ML AMP IV ONE (12:00)
[2017-10-24] MEDS ORDERED: LIDOCAINE HCL 1% PF 5 ML SYRINGE OTHER ONE (12:00)
[2017-10-24] MEDS: PANTOPRAZOLE SOD 40 MG DELAYED RELEASE TAB PO SCH ×2 (12:49→21:00)
[2017-10-24] MEDS: SIMETHICONE 125 MG CHEWABLE TAB PO SCH ×3 (12:49→21:56)
[2017-10-24 15:45] VITALS: BP 121/71; PULSE 94; RESP 20; TEMP 99; O2SAT 97
[2017-10-24 19:47] VITALS: BP 117/67; PULSE 103; RESP 17; TEMP 98.8; O2SAT 97
[2017-10-24] MEDS: prednisoLONE ACETATE 1% OPHT SUSP 5 ML BTL RIGHT EYE SCH (21:00)
[2017-10-24] MEDS: METOPROLOL TARTRATE 25 MG TAB PO SCH (21:56)
[2017-10-25] VITALS (10 sets, daily range): BP systolic 103–154; BP diastolic 60–81; PULSE 62–88; RESP 16–20; TEMP 97.3–98.6; O2SAT 94–98
[2017-10-25] MEDS: SIMETHICONE 125 MG CHEWABLE TAB PO SCH ×3 (04:51→22:48)
[2017-10-25] MEDS: LEVOTHYROXINE SODIUM 100 MCG TAB PO SCH (04:51)
[2017-10-25] MEDS: INSULIN ASPART SUPPLEMENTAL SCALE SQ SCH ×4 (08:00→21:00)
[2017-10-25] MEDS: BUDESONIDE-FORMOTEROL 160/4.5 MCG INHALER INH SCH ×2 (09:00→22:47)
[2017-10-25] MEDS: PANTOPRAZOLE SOD 40 MG DELAYED RELEASE TAB PO SCH ×2 (09:28→22:48)
[2017-10-25] MEDS: METOPROLOL TARTRATE 25 MG TAB PO SCH ×2 (09:28→22:47)
[2017-10-25] MEDS: LISINOPRIL 20 MG TAB PO SCH (09:28)
--- NOTE | 2017-10-25 11:05 | HHI.PR ---
Subjective Remarks palpitation and sob/dizziness with exertion essentially resolved after lopressor. Objective Vitals haert reg lung cta ab d s/t ext no edema Vital Signs Date Time Temp Pulse Resp B/P (MAP) Pulse Ox O2 Delivery O2 Flow Rate FiO2 10/25/17 08:00 98.3 67 16 126/61 (82) 95 10/25/17 07:45 76 10/25/17 07:45 Room Air 10/25/17 04:26 97.4 79 18 129/60 (83) 96 10/25/17 04:00 62 10/25/17 04:00 Room Air 10/25/17 00:10 98.6 76 20 149/81 (103) 94 10/25/17 00:00 Room Air 10/25/17 00:00 74 10/24/17 23:00 Room Air 10/24/17 19:47 98.8 103 17 117/67 (84) 97 10/24/17 15:45 99.0 94 20 121/71 (88) 97 10/25/17 10/25/17 10/26/17 15:00 23:00 07:00 Intake Total 0 ml Balance 0 ml IV Total 0 ml Result Diagram: 10/22/17 0602 10/22/17 0602 Imaging Last Impressions Myocardial Perfusion Scan Nuc Med 10/22/17 0600 Signed Impressions: Service Date/Time: Sunday, October 22, 2017 09:29 - CONCLUSION: 1. No evidence of stress-induced ischemia. 2. Intact wall motion with greater than 70%% ejection fraction. RISK CATEGORY: Low (<1%% Annual Mortality Rate) Polo Apaircio MD Abdomen/Pelvis CT 10/22/17 0000 Signed Impressions: Service Date/Time: Sunday, October 22, 2017 17:24 - CONCLUSION: 1. Oral contrast passes through to the right colon, but there is an area without contrast in the region of the cecum suggesting possible intraluminal mass. May consider direct visualization with colonoscopy. 2. Small fat containing left inguinal hernia. Polo Aparicio MD A/P Problem List: (1) SOB (shortness of breath) ICD Codes: R06.02 - Shortness of breath Status: Acute Plan: SOB with upper abdomen "band like sensation" and left chest pressure. Severe ABREU and dizziness Possible cecal mass - Pt is a 62yo woman with hx parotid ca s/p resection/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 She reportedly was unable to finish the last 2 chemo cycles due to side effects. Since finishing her chemo she has had some degree of chronic SOB and is unclear about her hx of copd. - On the morning of admission she had a lot of band like pressure around her upper abdomen causing nausea, SOB, dizziness especially with ambulation - CXR (10/21/17) conclusion: the lungs are clear - CT Pulmonary angiogram (10/21/17) --> Mild COPD changes. No Pulmonary embolus identified. Stable compared to previous exam dated 06/17/17 - Lexiscan (10/22)--> No evidence of stress-induced ischemia. Intact wall motion with greater than 70% EF. - Telemetry which noted tachycardia into the 130's periodically, she repeorts that this is with ambulation. - No noted hypoxia with ambulation - US left leg impression: Negative deep venous ultrasound examination of the left lower leg - 2D echo is pending - CT Abd/pelvis W/O IV contrast (10/22/17) --> Oral contrast passes through to the right colon, but there is an area without contrast in the region of the cecum suggesting possible intraluminal mass. May consider direct visualization with colonoscopy. Small fat containing left inguinal hernia. - G was consulted - EGD/colonoscopy (10/24/17) -->irregular Z line, possible short Evans, small hiatal hernia, normal terminal ileum, normal cecum was examined carefully no masses were seen, diverticular disease in the left colon, small polyp in the rectum which was removed completely, and small internal hemorrhoid - Start Protonix 40mg po BID - Simethicone 125mg Q8H Palpitations Dizziness HTN - Review of telemetry with periods of tachyarrhtymia, possible A. flutter with HR into the 130-140s. This seems to correlate with ambulation - Holter monitor - Decrease Lisinopril to 10mg po daily - Added on Metoprolol 25mg po BID and symptoms are much better holter pending. pt might be going home this evening. Diabetes mellitus, type 2 - Hgb A1C 7.6% - NovoLog SSI COPD/asthma - Outpt PFT from [facility] (09/26/17) revealed FEV1 58% - Cont her Symbicort. HTN - Cont. 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 (2) HTN (hypertension) ICD Codes: I10 - Essential (primary) hypertension Status: Chronic (3) DM type 2 (diabetes mellitus, type 2) ICD Codes: E11.9 - Type 2 diabetes mellitus without complications Status: Chronic (4) Hypothyroid ICD Codes: E03.9 - Hypothyroidism, unspecified Status: Chronic (5) Carcinoma of parotid gland ICD Codes: C07 - Malignant neoplasm of parotid gland Status: Resolved Darryl Kam MD October 25, 2017 11:05
[2017-10-25] MEDS: prednisoLONE ACETATE 1% OPHT SUSP 5 ML BTL RIGHT EYE SCH (21:00)
[2017-10-26 00:06] VITALS: BP 126/64; PULSE 71; RESP 20; TEMP 97.6; O2SAT 95
[2017-10-26 04:10] VITALS: BP 112/62; PULSE 62; RESP 20; TEMP 98.2; O2SAT 95
[2017-10-26] MEDS: SIMETHICONE 125 MG CHEWABLE TAB PO SCH (06:23)
[2017-10-26] MEDS: LEVOTHYROXINE SODIUM 100 MCG TAB PO SCH (06:23)
[2017-10-26 08:00] VITALS: BP 143/67; PULSE 67; RESP 16; TEMP 97.6; O2SAT 94
[2017-10-26] MEDS: PANTOPRAZOLE SOD 40 MG DELAYED RELEASE TAB PO SCH (08:00)
[2017-10-26] MEDS: INSULIN ASPART SUPPLEMENTAL SCALE SQ SCH ×2 (08:00→12:00)
[2017-10-26] MEDS: LISINOPRIL 20 MG TAB PO SCH (08:01)
[2017-10-26] MEDS: METOPROLOL TARTRATE 25 MG TAB PO SCH (08:01)
[2017-10-26] MEDS: BUDESONIDE-FORMOTEROL 160/4.5 MCG INHALER INH SCH (08:02)
[2017-10-26] MEDS ORDERED: PANT40TA3 PO (09:39)
[2017-10-26] MEDS ORDERED: LISI10TA3 PO (09:39)
[2017-10-26] MEDS ORDERED: METO25TA3 PO (09:39)
[2017-10-26] MEDS ORDERED: SIME125 PO (09:39)
--- NOTE | 2017-10-26 09:43 | HHI.DCPOC ---
Discharge Care Plan Diagnosis: (1) Tachycardia (2) DM type 2 (diabetes mellitus, type 2) (3) HTN (hypertension) (4) Hypothyroid Goals to Promote Your Health * To prevent worsening of your condition and complications * To maintain your health at the optimal level Directions to Meet Your Goals Take your medications as prescribed Follow your dietary instruction Follow activity as directed Keep your appointments as scheduled Take your immunizations and boosters as scheduled If your symptoms worsen call your PCP, if no PCP go to Urgent Care Center or Emergency Room Smoking is Dangerous to Your Health. Avoid second hand smoke Call the 24-hour hour crisis hotline for domestic abuse at Darryl Kam MD October 26, 2017 09:43
--- NOTE | 2017-10-26 09:47 | HHI.DS ---
Discharge Summary Admission Date October 23, 2017 at 10:54 Discharge Date: October 26, 2017 Admitting Diagnosis (1) Tachycardia Diagnosis: Principal ICD Codes: R00.0 - Tachycardia, unspecified (2) SOB (shortness of breath) Diagnosis: Principal ICD Codes: R06.02 - Shortness of breath Status: Acute (3) HTN (hypertension) Diagnosis: Secondary ICD Codes: I10 - Essential (primary) hypertension Status: Chronic (4) DM type 2 (diabetes mellitus, type 2) Diagnosis: Secondary ICD Codes: E11.9 - Type 2 diabetes mellitus without complications Status: Chronic (5) Hypothyroid Diagnosis: Secondary ICD Codes: E03.9 - Hypothyroidism, unspecified Status: Chronic (6) Carcinoma of parotid gland Diagnosis: Secondary ICD Codes: C07 - Malignant neoplasm of parotid gland Status: Resolved Brief History Pt is 62yo woman with hx parotid ca s/p resection, 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 Pt says she was unable to finish the last 2 chemo cycles due to side effects. Since finishing her chemo she has had some degree of chronic sob and is unclear about her hx of copd. She denies any recent wheezing or increase in cough. since this morning has had alot of band like pressure around her upper abdomen causing nausea, sob, dizziness especially with ambulation. She also grabs her left ant chest during my conversation and describes pressure. no jaw or arm radiation. No known hx of cad but has hx of LBBB. Pt had cta chest in [place] and sent here for eval for cardiac dz. Pt notes a "pinching sensation" under the left breast and even some palpitations with exertion. CBC/BMP: 10/22/17 0602 10/22/17 0602 Hospital Course (1) SOB (shortness of breath) SOB with upper abdomen "band like sensation" and left chest pressure. Severe ABREU and dizziness Possible cecal mass - Pt is a 62yo woman with hx parotid ca s/p resection/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 She reportedly was unable to finish the last 2 chemo cycles due to side effects. Since finishing her chemo she has had some degree of chronic SOB and is unclear about her hx of copd. - On the morning of admission she had a lot of band like pressure around her upper abdomen causing nausea, SOB, dizziness especially with ambulation - CXR (10/21/17) conclusion: the lungs are clear - CT Pulmonary angiogram (10/21/17) --> Mild COPD changes. No Pulmonary embolus identified. Stable compared to previous exam dated 06/17/17 - Lexiscan (10/22)--> No evidence of stress-induced ischemia. Intact wall motion with greater than 70% EF. - Telemetry which noted tachycardia into the 130's periodically, she reports that this is with ambulation. - No noted hypoxia with ambulation - US left leg impression: Negative deep venous ultrasound examination of the left lower leg - 2D echo mild lvh and nml LVF - CT Abd/pelvis W/O IV contrast (10/22/17) --> Oral contrast passes through to the right colon, but there is an area without contrast in the region of the cecum suggesting possible intraluminal mass. May consider direct visualization with colonoscopy. Small fat containing left inguinal hernia. - G was consulted - EGD/colonoscopy (10/24/17) -->irregular Z line, possible short Evans, small hiatal hernia, normal terminal ileum, normal cecum was examined carefully no masses were seen, diverticular disease in the left colon, small polyp in the rectum which was removed completely, and small internal hemorrhoid - Start Protonix 40mg - Simethicone 125mg Q8H Tachycardia Dizziness HTN - Review of telemetry with periods of tachyarrhtymia, possible A. flutter with HR into the 130-140s. This seems to correlate with ambulation - Holter monitor pending - Decrease Lisinopril to 10mg po daily - Added on Metoprolol 25mg po BID and symptoms are much better. I monitored ambulating up and down robb with resolution of her palpitation/sob/dizziness sx' s. holter pending. Pt prefers to go home and f/u with pcp...I will call her with holter and thyroid studies that are pending. Diabetes mellitus, type 2 - Hgb A1C 7.6% - NovoLog SSI COPD/asthma - Outpt PFT from [facility] (09/26/17) revealed FEV1 58% - Cont her Symbicort. HTN - Cont. 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 Pt Condition on Discharge: Stable Discharge Disposition: Discharge Home Discharge Instructions DIET: Follow Instructions for: Heart Healthy Diet Activities you can perform: Regular-No Restrictions Darryl Kam MD October 26, 2017 09:47
[2017-10-26 12:56] LABS: FREE T4 1.41 NG/DL (0.76-1.46)
--- NOTE | 2017-10-26 15:50 | HM ---
Date Performed: 10/24/2017 Time Performed: 21:31:00 HOOKUP DATE: 10/24/17 09:31:00 PM Thi ANALYSIS START TIME: 10/24/2017 9:36:00 PM ANALYSIS END TIME: 10/25/2017 8:32:00 PM PATIENT AGE: 62 PATIENT HEIGHT: 66 PATIENT WEIGHT: 176 DRUG LIST: ROOM# [id number] PATIENT DIAGNOSIS: CHEST PAIN / S.O.B. TEST NARRATIVE: The patient's average heart rate was 77 BPM. Heart rates greater than 120 B PM were noted < 1% of the time. No episodes of bradycardia were noted. No pauses exceeding 2.0 s econds were noted. 2 ventricular ectopics, which represented < 1% of the total beat count, were n oted. The highest ventricular ectopic frequency occurred from 10:00 AM to 11:00 AM Fri. During this time 2 VE(s) occurred. Ventricular ectopics were observed as 2 isolated beat(s) only. No couplets or runs were noted. 5 supraventricular ectopics, which represented < 1% of the total beat count, were noted. The highest supraventricular ectopic frequency occurred from 09:00 AM to 10:00 AM Fri. During this time 5 SVE(s) occurred. No episodes of ST depression (defined as -1.0 mm or more) wer e noted in channel 1. No episodes of ST depression (defined as -1.0 mm or more) were noted in channe l 2. No episodes of ST depression (defined as -1.0 mm or more) were noted in channel 3. TEST INTERPRETATION: 24 Hour Holter Moniter-Dr. Paramjit Salmeron Indications: Chest Pain / Shor tness of Breath ofteen seen. Patient was monitored for 22 hours and 56 minutes. Patient had a minimu m heart rate of 58 beats per minute, and maximum heart rate of 125 beats per minute, and an average h eart rate of 77 beats per minute. Conclusion: Holter notable for a short atrial run ansd occassional PACs and PVCs, but no atrial fibrillation or other sustained dysrythmia. A blocked PAC during the ove rnight hours resulting in short pauses often seen. Patient developed pinching in her chest at 12:15 , did not cooelate with any aryythmia or ST change. Patients symptoms of palpitations did not correla te with any dysrhythmia on her EKG today. Signed by : Paramjit Salmeron
--- NOTE | 2017-10-29 09:03 | RSPPFT ---
DATE OF PROCEDURE: 10/25/17 COMMENTS: The forced vital capacity is moderately reduced. The FEV1 and FEF 25-75 are both moderately reduced. The FEV1/FVC ratio shows a small reduction. IMPRESSION: This is compatible with moderate, restrictive lung disease with a moderate large and small airways, irreversible, obstructive component.
== END 2017-10-26 12:54 | disposition home or self-care (01) | DRG 309 ==
LOC: NEDDLT 15:04 → NEPFCDU 16:34 → INTOOBSV 16:34 → OBSVTOIN 10-23 10:54 → N04A 10-24 22:54
PROVIDERS: ADMIT Hospitalist; ATTEND Hospitalist
PROC: 0DBP8ZZ Excision of Rectum, Via Natural or Artificial Opening Endoscopic (ICD-10-PCS; 2017-10-24)
PROC: 4A12X45 Monitoring of Cardiac Electrical Activity, Ambulatory, External Approach (ICD-10-PCS; principal; 2017-10-24 09:15)
PROC: 0DB48ZX Excision of Esophagogastric Junction, Via Natural or Artificial Opening Endoscopic, Diagnostic (ICD-10-PCS; 2017-10-24 09:15)
DX: I48.92 Unspecified atrial flutter (principal); H20.9 Unspecified iridocyclitis; I10 Essential (primary) hypertension; E11.9 Type 2 diabetes mellitus without complications; J44.9 Chronic obstructive pulmonary disease, unspecified; E03.9 Hypothyroidism, unspecified; K40.90 Unilateral inguinal hernia, without obstruction or gangrene, not specified as recurrent; K57.90 Diverticulosis of intestine, part unspecified, without perforation or abscess without bleeding; K64.8 Other hemorrhoids; K62.1 Rectal polyp; K44.9 Diaphragmatic hernia without obstruction or gangrene; Z92.3 Personal history of irradiation; Z88.0 Allergy status to penicillin; Z85.89 Personal history of malignant neoplasm of other organs and systems; Z92.21 Personal history of antineoplastic chemotherapy; Z88.2 Allergy status to sulfonamides
CPT/HCPCS: 71045; 71275; 74176; 78452; 80048; 80053; 80061; 82550; 82948; 83036; 83880; 84439; 84443; 84484; 85025; 85379; 85610; 85730; 88305; 93005; 93017; 93225; 93226; 93306; 94060; 94618; 99285; A9502; J1815; J2405; J2785; J7120; Q9963; Q9967